=== PATIENT | female | born 1935 | race Caucasian/White ===

== ENCOUNTER 2016-11-15 09:40 | Emergency (ER) | payer MEDICARE ==
[~2016-11-15 09:40] MED LIST: ASPI1TAB7 PO; ATOR20TA PO; HYDR-2768 PO; LATA0.00 OP; METH2.5 PO; PRED10 PO
[2016-11-15 09:47] VITALS: BP 188/87; PULSE 111; RESP 20; TEMP 98.4; O2SAT 98
--- NOTE | 2016-11-15 10:05 | PD ---
HPI Chief Complaint: Complaint Time Seen by Provider: 09:55 Travel History International Travel<30 days: No Contact w/Intl Traveler<30days: No Traveled to known affect area: No History of Present Illness HPI The patient is a 81-year-old female who presents to the emergency department for hematuria and dysuria. The patient states her symptoms started approximately 4 AM with dysuria. The patient then noticed that she had burning with urination and some blood in the urine. Patient now complains of blood clots in her urine with mild pain with urination. She denies any nausea, vomiting, diarrhea, flank pain, or history of nephrolithiasis. She does complain of suprapubic discomfort and pressure with urination. The patient denies any history of tobacco use or bladder cancer. The patient's symptoms are moderate, there are no alleviating or exacerbating factors. She denies any associated fever, chills, or sweats. PFSH Past Medical History Autoimmune Disease: Yes (TEMPORAL ARTERITIS) Heart Rhythm Problems: No Cancer: No Cardiac Catheterization: No Cardiovascular Problems: No (INFLAMATION OF BILATERAL TEMPORAL ARTERIES) High Cholesterol: Yes Congestive Heart Failure: No Diabetes: No Diminished Hearing: No Endocrine: No Genitourinary: No Hepatitis: No Hiatal Hernia: No Immune Disorder: No Musculoskeletal: No Neurologic: No Psychiatric: No Reproductive: Yes (hx of hysterectomy) Respiratory: No Thyroid Disease: No Menopausal: Yes Past Surgical History AICD: No Coronary Artery Bypass Graft: No Eye Surgery: Yes (CATARACT EXTRACTION 2004 ) Gynecologic Surgery: Yes (hysterectomy) Hysterectomy: Yes (1984) Joint Replacement: No Pacemaker: No Social History Alcohol Use: No Tobacco Use: No Substance Use: No Allergies-Medications (Allergen,Severity, Reaction): Coded Allergies: Penicillin (Verified Allergy, Severe, LIPS AND TONGUE SWOLLEN, 11/15/16) Reported Meds & Prescriptions Reported Meds & Active Scripts Active Reported [Lantanprost] 1 Drop EACH EYE HS Aspir-Low (Aspirin) 81 Mg Tabdr 1 Tab PO DAILY Pantoprazole (Pantoprazole Sodium) 20 Mg Tab 20 Mg PO DAILY Prednisone 1 Mg Tab 4 Mg PO DAILY Leflunomide 20 Mg Tab 20 Mg PO DAILY Losartan-Hydrochlorothiazide 50-12.5 Mg Tab 1 Tab PO DAILY Atorvastatin (Atorvastatin Calcium) 20 Mg Tab 20 Mg PO HS Review of Systems Except as stated in HPI: all other systems reviewed are Neg General / Constitutional: No: Fever Gastrointestinal: No: Nausea, Vomiting, Diarrhea, Abdominal Pain Genitourinary: Positive: Dysuria, Hematuria, Pelvic Pain, No: Flank Pain, Vaginal Bleeding Physical Exam Narrative GENERAL: Awake, alert, pleasant 81-year-old female who appears her stated age and is in no acute respiratory distress. SKIN: Warm and dry. HEAD: Atraumatic. Normocephalic. EYES: No injection or drainage. ENT: No nasal bleeding or discharge. Mucous membranes pink and moist. NECK: Trachea midline. No JVD. GASTROINTESTINAL: Abdomen soft, non-tender, nondistended. No rebound tenderness. No suprapubic tenderness. Back: No CVA tenderness. MUSCULOSKELETAL: No obvious deformities. No clubbing. No cyanosis. No edema. NEUROLOGICAL: Awake and alert. No obvious cranial nerve deficits. Motor grossly within normal limits. Normal speech. PSYCHIATRIC: Appropriate mood and affect; insight and judgment normal. Data Data Last Documented VS Vital Signs Date Time Temp Pulse Resp B/P Pulse Ox O2 Delivery O2 Flow Rate FiO2 11/15/16 09:47 98.4 111 20 188/87 98 Orders Urinalysis - C+S If Indicated (11/15/16 10:00) Ct Abd/Pel W/O Iv Contrast (11/15/16 ) Urine Culture (11/15/16 10:10) Labs Laboratory Tests Test 11/15/16 10:10 Urine Collection Type CLEAN CATCH Urine Color RED Urine Turbidity CLOUDY Urine pH 8.0 Urine Specific [place] 1.010 Urine Protein 300 OR GREATER mg/dL Urine Glucose (UA) 100 mg/dL Urine Ketones TRACE mg/dL Urine Occult Blood LARGE Urine Nitrite POS Urine Bilirubin NEG Urine Leukocyte Esterase MOD Urine RBC INNUM /hpf Urine WBC 20-24 /hpf Urine WBC Clumps MANY Microscopic Urinalysis Comment CULTURE INDICATED MDM Medical Decision Making Medical Screen Exam Complete: Yes Emergency Medical Condition: Yes Medical Record Reviewed: Yes Interpretation(s) Laboratory Tests Test 11/15/16 10:10 Urine Collection Type CLEAN CATCH Urine Color RED Urine Turbidity CLOUDY Urine pH 8.0 Urine Specific [place] 1.010 Urine Protein 300 OR GREATER mg/dL Urine Glucose (UA) 100 mg/dL Urine Ketones TRACE mg/dL Urine Occult Blood LARGE Urine Nitrite POS Urine Bilirubin NEG Urine Leukocyte Esterase MOD Urine RBC INNUM /hpf Urine WBC 20-24 /hpf Urine WBC Clumps MANY Microscopic Urinalysis Comment CULTURE INDICATED CT the abdomen and pelvis reveals small fat containing umbilical hernia. Slight prominence the right infra-renal collecting system without evidence of radiopaque calculi or discrete mass. Trace free fluid in the pelvis. Differential Diagnosis Differential diagnosis includes hemorrhagic cystitis, UTI, nephrolithiasis, bladder cancer cystitis, cystitis. Narrative Course IV was established, labs were drawn and sent, and the patient was placed on cardiac telemetry monitoring and continuous pulse oximetry monitoring. UA was sent to lab. CT of the abdomen and pelvis without IV contrast was ordered. UA reveals large amount of blood and a few WBCs. CT the abdomen and pelvis reveals slight prominence of the right intrarenal collecting system without evidence of radiopaque calculi or discrete mass. Trace free fluid in the pelvis. The patient urinated once again in the emergency department, states her urine was clear and to a slightly pink coloration and there was no pain. Patient may have hemorrhagic cystitis versus kidney stone versus bladder mass. The patient is advised to follow-up with her primary physician, Dr. Shirley, and if symptoms persist, follow-up with urology for outpatient cystoscopy. The patient will be provided a copy of her CT results and lab results at discharge. Diagnosis Primary Impression: Hematuria Additional Impression: Hemorrhagic cystitis Patient Instructions: General Instructions Additional Instructions: Please provide the patient a copy of her CT results and UA results at discharge. Cipro and Pyridium as directed. Follow-up with Dr. Shirley, if symptoms persist, you may benefit from outpatient urology consultation and cystoscopy. Med/Other Pt SpecificInfo: Prescription(s) given Scripts Phenazopyridine (Pyridium)200 Mg Oge450 Mg PO Q8H PRN (DYSURIA) 2 Days Ref 0 Prov:Fabien Peguero MD 11/15/16 Ciprofloxacin (Cipro)500 Mg [id number] Mg PO BID 7 Days Ref 0 Prov:Fabien Peguero MD 11/15/16 Disposition: 01 DISCHARGE HOME Condition: Stable Fabien Peguero MD Nov 15, 2016 10:05
[2016-11-15] MEDS ORDERED: LEFL1TAB3 PO (10:08)
[2016-11-15] MEDS ORDERED: ASPI81TA19 PO (10:08)
[2016-11-15] MEDS ORDERED: [UNRECOGNIZED DRUG - OTHER] EACH EYE (10:08)
[2016-11-15] MEDS ORDERED: PRED1 PO (10:08)
[2016-11-15] MEDS ORDERED: ATOR20TA15 PO (10:08)
[2016-11-15] MEDS ORDERED: PANT20TA2 PO (10:08)
[2016-11-15] MEDS ORDERED: LOSA50TA2 PO (10:08)
[2016-11-15 10:16] LABS: BLOOD, URINE LARGE (NEG); GLUCOSE,URINE 100 mg/dL (NEG); KETONE, URINE TRACE mg/dL (NEG)
[2016-11-15 10:19] LABS: NITRITE,URINE POS (NEG)
[2016-11-15 10:20] LABS: METHOD OF COLLECTION CLEAN CATCH; URINE COLOR RED (YELLW/STRAW)
[2016-11-15 10:21] LABS: COMMENT (UR) CULTURE INDICATED; CULTURE IF INDICATED CULTURE INDICATED; RBC, URINE INNUM /hpf (0-3)
--- NOTE | 2016-11-15 11:25 | RADHPO ---
EXAM DATE/TIME: 11/15/2016 11:05 [facility] COMPARISON: No previous studies available for comparison. INDICATIONS : Hematuria and dysuria, with suprapubic pain since this morning. ORAL CONTRAST: No oral contrast ingested. RADIATION DOSE: 5.28 CTDIvol (mGy) MEDICAL HISTORY : Hypertension. SURGICAL HISTORY : Hysterectomy. ENCOUNTER: Initial ACUITY: 1 day PAIN SCALE: 1/10 LOCATION: lower quadrant TECHNIQUE: Volumetric scanning of the abdomen and pelvis was performed. Using automated exposure control and ad justment of the mA and/or kV according to patient size, radiation dose was kept as low as reasonably achievable to obtain optimal diagnostic quality images. FINDINGS: Liver, gallbladder, spleen, pancreas, right adrenal gland and left kidney are unremarkable. There is mild enlargement of the medial limb of the left adrenal gland suspect for an adenoma. There is minima l prominence of the right intrarenal collecting system and renal pelvis. No radiopaque renal or urete ral tract by are seen. Trace free fluid in the right hemipelvis adjacent to the posterior margin of t he urinary bladder. The patient is status post hysterectomy. There is no evidence of bowel obstructio n. Small fat containing umbilical hernia. Bases are clear. Osseous structures demonstrate degenerativ e changes of the spine. Atherosclerosis of the aorta and iliac vessels. CONCLUSION: 1. Small fat containing umbilical hernia. 2. Slight prominence of the right intrarenal collecting system without evidence of radiopaque calculi or discrete mass. 3. Trace free fluid in the pelvis. Joaquin Dumont MD on November 15, 2016 at 11:19 Board Certified Radiologist. This report was verified electronically.
[2016-11-15] MEDS ORDERED: CIPR-9 PO (11:42)
[2016-11-15] MEDS ORDERED: PYRI200T4 PO (11:42)
[2016-11-15 11:52] VITALS: BP 166/83
[2016-11-16] MEDS ORDERED: LATA0.002 EACH EYE (10:23)
[2017-02-07] MEDS ORDERED: DOXY100C PO (08:31)
== END 2016-11-15 11:55 | disposition home or self-care (01) ==
LOC: PHED 09:40
DX: N30.91 Cystitis, unspecified with hematuria (principal); B96.4 Proteus (mirabilis) (morganii) as the cause of diseases classified elsewhere
CPT/HCPCS: 74176; 81001; 87077; 87086; 87186

== ENCOUNTER → 2017-02-07 | Outpatient (CLI) | payer MEDICARE ==
[~2017-02-07] MED LIST changes: -ASPI1TAB7 PO; +ASPI81TA19 PO; -ATOR20TA PO; +ATOR20TA15 PO; +CIPR-9 PO; +DOXY100C PO; -HYDR-2768 PO; -LATA0.00 OP; +LATA0.002 EACH EYE; +LEFL1TAB3 PO; +LOSA50TA2 PO; -METH2.5 PO; +PANT20TA2 PO; +PRED1 PO; -PRED10 PO; +PYRI200T4 PO
[2017-02-07 08:32] LABS: AUTOMATED NEUTROPHIL # 2.9 TH/MM3 (1.8-7.7); BASOPHIL # 0.1 TH/MM3 (0-0.2); BASOPHIL % 1.1 % (0.0-2.0); HEMATOCRIT 37.3 % (35.0-46.0); HEMO FLAGS DIFF FINAL; LYMPH % 24.7 % (9.0-44.0); LYMPHOCYTE # 1.2 TH/MM3 (1.0-4.8); MEAN CELL VOLUME 87.3 FL (80.0-100.0); MEAN CORPUSCULAR HEMOGLOBIN 29.5 PG (27.0-34.0); MEAN CORPUSCULAR HGB CONC 33.7 % (32.0-36.0); MONO % 15.6 % (0.0-8.0); NEUT % 57.6 % (16.0-70.0); PLATELET COUNT 234 TH/MM3 (150-450); RED BLOOD COUNT 4.27 MIL/MM3 (4.00-5.30); RED CELL DISTRIBUTION WIDTH 15.1 % (11.6-17.2)
[2017-02-07 08:42] LABS: APTT (PATIENT) 26.5 SEC (24.3-30.1); INTERNATIONAL NORMALIZED RATIO 1.1 RATIO
[2017-02-07 08:51] LABS: ALT (GPT) 26 U/L (10-53); ANION GAP 12 MEQ/L (5-15); AST (GOT) 26 U/L (15-37); BICARBONATE 25.6 MEQ/L (21.0-32.0); BLOOD UREA NITROGEN 14 MG/DL (7-18); CHLORIDE 96 MEQ/L (98-107); GLOMERULAR FILTRATION RATE 79 ML/MIN (>89); GLUCOSE,FASTING 93 MG/DL (74-99); SODIUM (NA) 134 MEQ/L (136-145)
[2017-02-07 08:54] LABS: ALKALINE PHOSPHATASE 58 U/L (45-117); TOTAL BILIRUBIN ADULT 0.7 MG/DL (0.2-1.0)
[2017-02-07 10:16] LABS: BLOOD, URINE NEG (NEG); GLUCOSE,URINE NEG (NEG); HYALINE CAST, URINE 1 /lpf (RARE); KETONE, URINE NEG (NEG); NITRITE,URINE NEG (NEG); PH, URINE 6.5 (5.0-8.5); URINE COLOR YELLOW (YELLW/STRAW)
[2017-02-07 10:17] LABS: COMMENT (UR) CATH-CULT NOT IND; CULTURE IF INDICATED CATH CULTURE NOT IND
== END ==
LOC: CPRE 07:39
PROVIDERS: ATTEND Surgery
DX: Z01.810 Encounter for preprocedural cardiovascular examination (principal); Z01.812 Encounter for preprocedural laboratory examination
CPT/HCPCS: 36415; 80053; 81001; 85025; 85610; 85730

== ENCOUNTER 2017-05-29 08:05 | Emergency (ER) | payer MEDICARE ==
[~2017-05-29] VITALS: Ht 147.3 cm; Wt 44.0 kg
[~2017-05-29 08:05] MED LIST changes: -CIPR-9 PO; -PYRI200T4 PO
[2017-05-29 08:08] VITALS: BP 139/84; PULSE 142; RESP 18; TEMP 98.1; O2SAT 94
[2017-05-29] MEDS ORDERED: RIFA300C2 PO (08:20)
[2017-05-29] MEDS ORDERED: DAPS5TAB PO (08:22)
--- NOTE | 2017-05-29 08:46 | PD ---
HPI Chief Complaint: Skin Problem Time Seen by Provider: 08:24 Travel History International Travel<30 days: No Contact w/Intl Traveler<30days: No Traveled to known affect area: No History of Present Illness HPI This 82-year-old female presents with complaint of possible infection in her left leg. 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 She is being followed by Dr. armando castaneda for the leprosy. She is on dapsone and rifampin. She says the last couple of days he's had some drainage from the left leg and she is concerned that that may be a bacterial superinfection. She does say that she's been short of breath recently. For the last 2 weeks she's had increasing shortness of breath. She says she gets short of breath doing light housework. She has not had fever or chills. He has never smoked. She has not had chest pain. She was evaluated by a order manager because of a fast heart rate. He was in the chest pain center here in November 2015. Her workup then was negative. Her heart rate was not rapid. She says that recently it has been rapid and she has been aware of the fast heartbeat. She was seen by the order manager and had an echocardiogram and Holter monitor. She does say that Dr. Armstrong had lowered her dose of dapsone for a brief time because of anemia PFSH Past Medical History Autoimmune Disease: Yes (TEMPORAL ARTERITIS) Heart Rhythm Problems: No Cancer: No Cardiac Catheterization: No Cardiovascular Problems: Yes (INFLAMATION OF BILATERAL TEMPORAL ARTERIES) High Cholesterol: Yes Congestive Heart Failure: No Diabetes: No Diminished Hearing: No Endocrine: No GERD: Yes Glaucoma: Yes Genitourinary: No Hepatitis: No Hiatal Hernia: No Hypertension: Yes Immune Disorder: No Medical other: Yes (OSTEOPEROSIS) Musculoskeletal: No Neurologic: No Psychiatric: No Reproductive: Yes (hx of hysterectomy) Respiratory: No Thyroid Disease: No ?: Not Menopausal: Yes Past Surgical History AICD: No Coronary Artery Bypass Graft: No Eye Surgery: Yes (CATARACT EXTRACTION 2004 ) Gynecologic Surgery: Yes (hysterectomy) Hysterectomy: Yes (1984) Joint Replacement: No Pacemaker: No Other Surgery: Yes Social History Alcohol Use: Yes (RARE) Tobacco Use: No Substance Use: No Allergies-Medications (Allergen,Severity, Reaction): Coded Allergies: Penicillin (Verified Allergy, Severe, LIPS AND TONGUE SWOLLEN, 05/29/17) Sulfa (Verified Adverse Reaction, Unknown, NAUSEA, 05/29/17) Reported Meds & Prescriptions Reported Meds & Active Scripts Active Reported Dapsone 25 Mg Tab 50 Mg PO DAILY Rifampin 300 Mg Cap 600 Mg PO DAILY Latanoprost Opth Drops (Latanoprost) 0.005% Drops 1 Drop EACH EYE HS Refrigerate until opened. Aspir-Low (Aspirin) 81 Mg Tabdr 1 Tab PO DAILY Pantoprazole (Pantoprazole Sodium) 20 Mg Tab 20 Mg PO DAILY Leflunomide 20 Mg Tab 20 Mg PO DAILY Losartan-Hydrochlorothiazide 50-12.5 Mg Tab 1 Tab PO DAILY Atorvastatin (Atorvastatin Calcium) 20 Mg Tab 20 Mg PO HS Review of Systems General / Constitutional: No: Fever, Chills Eyes: No: Diploplia, Blurred Vision HENT: No: Headaches, Vertigo Cardiovascular: Positive: Palpitations, Tachycardia, No: Chest Pain or Discomfort Respiratory: Positive: Shortness of Breath Gastrointestinal: No: Nausea, Vomiting, Diarrhea Genitourinary: No: Urgency, Frequency Musculoskeletal: No: Myalgias, Arthralgias Skin: Positive Rash Neurologic: Positive: Weakness, No: Syncope, Focal Abnormalities Endocrine: No: Heat Intolerance, Cold Intolerance Hematologic/Lymphatic: No: Easy Bruising Physical Exam Narrative GENERAL: Thin female. Heart rate is recorded at 142 SKIN: Focused skin assessment warm/dry. There is a rash on the right lower leg which is well marginated. The rash is somewhat erythematous. There are areas of scabbing. There is no drainage at this time though she says it was draining earlier HEAD: Atraumatic. Normocephalic. EYES: Pupils equal and round. No scleral icterus. No injection or drainage. ENT: No nasal bleeding or discharge. Mucous membranes pink and moist. NECK: Trachea midline. No JVD. CARDIOVASCULAR: Rapid Regular rate and rhythm. No murmur appreciated. RESPIRATORY: No accessory muscle use. Clear to auscultation. Breath sounds equal bilaterally. GASTROINTESTINAL: Abdomen soft, non-tender, nondistended. Hepatic and splenic margins not palpable. MUSCULOSKELETAL: No obvious deformities. No clubbing. No cyanosis. No edema. NEUROLOGICAL: Awake and alert. No obvious cranial nerve deficits. Motor grossly within normal limits. Normal speech. PSYCHIATRIC: Appropriate mood and affect; insight and judgment normal. Data Data Last Documented VS Vital Signs Date Time Temp Pulse Resp B/P Pulse Ox O2 Delivery O2 Flow Rate FiO2 05/29/17 09:59 126 16 151/82 97 Room Air 05/29/17 08:08 98.1 Orders Electrocardiogram (05/29/17 08:24) Complete Blood Count With Diff (05/29/17 08:35) Comprehensive Metabolic Panel (05/29/17 08:35) Troponin I (05/29/17 08:35) B-Type Natriuretic Peptide (05/29/17 08:35) Urinalysis - C+S If Indicated (05/29/17 08:35) Magnesium (Mg) (05/29/17 08:35) Thyroid Stimulating Hormone (05/29/17 08:35) Chest, Single Ap (05/29/17 08:35) D-Dimer (05/29/17 08:35) Urine Culture (05/29/17 08:40) Ct Pulmonary Angiogram (05/29/17 09:21) Iohexol 350 Inj (Omnipaque 350 Inj) (05/29/17 09:49) Sodium Chlor 0.9% 1000 Ml Inj (Ns 1000 M (05/29/17 10:15) Cephalexin (Keflex) (05/29/17 10:15) Troponin I (05/29/17 12:45) Labs Laboratory Tests Test 05/29/17 05/29/17 05/29/17 08:40 08:45 12:30 Urine Collection Type CLEAN CATCH Urine Color YELLOW Urine Turbidity CLEAR Urine pH 7.0 Urine Specific [place] 1.013 Urine Protein NEG mg/dL Urine Glucose (UA) NEG mg/dL Urine Ketones NEG mg/dL Urine Occult Blood TRACE Urine Nitrite NEG Urine Bilirubin NEG Urine Leukocyte Esterase TRACE Urine RBC 0-3 /hpf Urine WBC 9-14 /hpf Microscopic Urinalysis Comment CULTURE INDICATED White Blood Count 5.1 TH/MM3 Red Blood Count 3.28 MIL/MM3 Hemoglobin 9.5 GM/DL Hematocrit 29.7 % Mean Corpuscular Volume 90.6 FL Mean Corpuscular Hemoglobin 29.0 PG Mean Corpuscular Hemoglobin 32.1 % Concent Red Cell Distribution Width 16.1 % Platelet Count 295 TH/MM3 Mean Platelet Volume 7.7 FL Neutrophils (%) (Auto) 65.9 % Lymphocytes (%) (Auto) 14.1 % Monocytes (%) (Auto) 18.2 % Eosinophils (%) (Auto) 1.0 % Basophils (%) (Auto) 0.8 % Neutrophils # (Auto) 3.4 TH/MM3 Lymphocytes # (Auto) 0.7 TH/MM3 Monocytes # (Auto) 0.9 TH/MM3 Eosinophils # (Auto) 0.1 TH/MM3 Basophils # (Auto) 0.0 TH/MM3 CBC Comment DIFF FINAL Differential Comment D-Dimer Quantitative (PE/DVT) 1.10 MG/L FEU Sodium Level 135 MEQ/L Potassium Level 4.0 MEQ/L Chloride Level 101 MEQ/L Carbon Dioxide Level 22.0 MEQ/L Anion Gap 12 MEQ/L Blood Urea Nitrogen 21 MG/DL Creatinine 0.86 MG/DL Estimat Glomerular Filtration 63 ML/MIN Rate Random Glucose 129 MG/DL Calcium Level 9.1 MG/DL Magnesium Level 1.7 MG/DL Total Bilirubin 1.7 MG/DL Aspartate Amino Transf 30 U/L (AST/SGOT) Alanine Aminotransferase 21 U/L (ALT/SGPT) Alkaline Phosphatase 91 U/L Troponin I 0.16 NG/ML 0.17 NG/ML B-Type Natriuretic Peptide 41 PG/ML Total Protein 6.7 GM/DL Albumin 3.3 GM/DL Thyroid Stimulating Hormone 4.190 uIU/ML 3rd Gen [facility] Medical Decision Making Medical Screen Exam Complete: Yes Emergency Medical Condition: Yes Medical Record Reviewed: Yes Differential Diagnosis Patient appears to have some possible bacterial superinfection of her rash. Of concern was her heart rate of 142. An EKG was done which appears to show sinus tachycardia at a rate of 1 [address] There are no [address]-T wave changes. Blood work was done. Her hemoglobin is 9.5. TSH is slightly elevated at 4.1. Her troponin is 0.16. she does have 9-14 white cells in her urine. A d-dimer was done which was elevated so a CTA has been done the CTA has been read as negative for pulmonary embolus. The patient has not been having any chest pain and had a normal stress test Nov 2015. I discussed the case with Dr. Saunders and Dr. Hunter. She has been given some IV fluids and her heart rate came down a little bit not to normal. It a 4 hour troponin was done and is essentially the same. It is 0.17 with the first one was 0.16 patient wishes to be released and will be released. Dr. Saunders has arranged for outpatient follow-up Narrative Course Patient will be given Keflex for possible bacterial superinfection of her rash. Workup is negative for PE. Her troponin was slightly elevated but repeat level is essentially the same. She is to follow-up with Dr. Shirley Diagnosis Primary Impression: Cellulitis Qualified Code: L03.115 - Cellulitis of right lower extremity Additional Impression: Urinary tract infection Qualified Code: N30.00 - Acute cystitis without hematuria Disposition: 01 DISCHARGE HOME Condition: Stable Toro Barry MD May 29, 2017 08:46
[2017-05-29 09:00] VITALS: BP 119/70; PULSE 133; RESP 20; O2SAT 100
[2017-05-29 09:00] LABS: AUTOMATED NEUTROPHIL # 3.4 TH/MM3 (1.8-7.7); BASOPHIL % 0.8 % (0.0-2.0); EOSINOPHIL # 0.1 TH/MM3 (0-0.4); HEMATOCRIT 29.7 % (35.0-46.0); HEMO FLAGS DIFF FINAL; LYMPH % 14.1 % (9.0-44.0); LYMPHOCYTE # 0.7 TH/MM3 (1.0-4.8); MEAN CELL VOLUME 90.6 FL (80.0-100.0); MEAN CORPUSCULAR HGB CONC 32.1 % (32.0-36.0); MONO % 18.2 % (0.0-8.0); NEUT % 65.9 % (16.0-70.0); PLATELET COUNT 295 TH/MM3 (150-450); RED BLOOD COUNT 3.28 MIL/MM3 (4.00-5.30); RED CELL DISTRIBUTION WIDTH 16.1 % (11.6-17.2); WHITE BLOOD COUNT 5.1 TH/MM3 (4.0-11.0)
[2017-05-29 09:03] LABS: CHLORIDE 101 MEQ/L (98-107); SODIUM (NA) 135 MEQ/L (136-145)
[2017-05-29 09:05] LABS: BLOOD, URINE TRACE (NEG); GLUCOSE,URINE NEG (NEG); KETONE, URINE NEG (NEG); NITRITE,URINE NEG (NEG)
[2017-05-29 09:07] LABS: ANION GAP 12 MEQ/L (5-15); BLOOD UREA NITROGEN 21 MG/DL (7-18); MAGNESIUM 1.7 MG/DL (1.5-2.5)
[2017-05-29 09:10] LABS: ALT (GPT) 21 U/L (10-53); AST (GOT) 30 U/L (15-37); GLOMERULAR FILTRATION RATE 63 ML/MIN (>89)
[2017-05-29 09:11] LABS: TOTAL BILIRUBIN ADULT 1.7 MG/DL (0.2-1.0)
[2017-05-29 09:12] LABS: METHOD OF COLLECTION CLEAN CATCH; URINE COLOR YELLOW (YELLW/STRAW)
[2017-05-29 09:13] LABS: ALKALINE PHOSPHATASE 91 U/L (45-117)
--- NOTE | 2017-05-29 09:14 | RADRPT ---
EXAM DATE/TIME: 05/29/2017 08:59 [facility] COMPARISON: CHEST SINGLE AP, November 19, 2015, 15:05. INDICATIONS : Short of breath MEDICAL HISTORY : None. SURGICAL HISTORY : None. ENCOUNTER: Initial ACUITY: 1 month PAIN SCORE: 0/10 LOCATION: Bilateral chest FINDINGS: A single view of the chest demonstrates the lungs to be hyperaerated without evidence of mass, infilt rate or effusion. The cardiomediastinal contours are unremarkable. Osseous structures are intact. CONCLUSION: COPD No evidence of acute process. Kirby Mix MD on May 29, 2017 at 9:12 Board Certified Radiologist. This report was verified electronically.
[2017-05-29 09:15] LABS: COMMENT (UR) CULTURE INDICATED; CULTURE IF INDICATED CULTURE INDICATED; RBC, URINE 0-3 /hpf (0-3)
[2017-05-29] MEDS ORDERED: IOHEXOL 350 MG/ML 10 ML VIAL (for RAD DIAG) IV ONE (09:49)
--- NOTE | 2017-05-29 09:57 | RADRPT ---
EXAM DATE/TIME: 05/29/2017 09:33 [facility] COMPARISON: No previous studies available for comparison. INDICATIONS : Short of breath. Evaluate for embolism. IV CONTRAST: 65 cc Omnipaque 350 (iohexol) IV RADIATION DOSE: 6.03 CTDIvol (mGy) MEDICAL HISTORY : Hypertension. SURGICAL HISTORY : Hysterectomy. ENCOUNTER: Initial ACUITY: 2 weeks PAIN SCALE: 0/10 LOCATION: chest TECHNIQUE: Volumetric scanning of the chest was performed using a pulmonary embolism protocol MIP images were re constructed. Using automated exposure control and adjustment of the mA and/or kV according to patien t size, radiation dose was kept as low as reasonably achievable to obtain optimal diagnostic quality images. DICOM format image data is available electronically for review and comparison. Follow-up recommendations for incidentally detected pulmonary nodules are based at a minimum on nodul e size and patient risk factors according to Fleischner Society Guidelines. FINDINGS: PULMONARY ARTERIES: No filling defects are seen in the pulmonary arteries through the segmental level. LUNGS: There is no consolidation or pneumothorax . No concerning pulmonary nodule is visualized. PLEURAE: There is no pleural thickening or pleural effusion. MEDIASTINUM: There is good visualization of the great vessels of the middle mediastinum. No evidence of mediastin al or hilar adenopathy/mass. MUSCULOSKELETAL: Within normal limits for patient age. MISCELLANEOUS: The visualized upper abdominal organs demonstrate no acute abnormality. CONCLUSION: No acute disease. No evidence of acute pulmonary emboli. Kirby Mix MD on May 29, 2017 at 9:54 Board Certified Radiologist. This report was verified electronically.
[2017-05-29 09:59] VITALS: BP 151/82; PULSE 126; RESP 16; O2SAT 97
[2017-05-29] MEDS ORDERED: CEPHALEXIN MONOHYDRATE 500 MG CAP PO ONE (10:15)
[2017-05-29] MEDS ORDERED: SODIUM CHLOR 0.9% 1000 ML INJ 1,000 ML IV ONE (10:15)
[2017-05-29] MEDS ORDERED: CEPH-460 PO (13:13)
--- NOTE | 2017-05-29 14:51 | HHI.PR ---
Subjective Remarks This 82-year-old female presents with complaint of possible infection in her left leg. 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 She is being followed by ID for the leprosy. She is on dapsone and rifampin. She says the last couple of days he's had some drainage from the left leg and she is concerned that that may be a bacterial superinfection. She does say that she's been short of breath recently. For the last 2 weeks she's had increasing shortness of breath. She says she gets short of breath doing light housework. She has not had fever or chills. He has never smoked. She has not had chest pain. She was evaluated by a friction saw operator because of a fast heart rate. He was in the chest pain center here in November 2015. Her workup then was negative. Her heart rate was not rapid. She says that recently it has been rapid and she has been aware of the fast heartbeat. She was seen by the friction saw operator and had an echocardiogram and Holter monitor. She does say that Dr. Armstrong had lowered her dose of dapsone for a brief time because of anemia. I evaluated patient in er . Her heart rate initially was high sinus tach then came down to about 120 agian sinus troponin was a little high .15 repaet after fluid was about same and cardiology felt can be discharged with follow up to cardiology. Patient does have wound which according to patient is worse no evidence of drainage and leg does not show any increase in redness will have wound clinic evaluation . Objective Vitals GENERAL: SKIN: Warm and dry. HEAD: Atraumatic. Normocephalic. EYES: Pupils equal and round. No scleral icterus. No injection or drainage. ENT: No nasal bleeding or discharge. Mucous membranes pink and moist. NECK: Trachea midline. No JVD. CARDIOVASCULAR: Regular rate and rhythm. RESPIRATORY: No accessory muscle use. Clear to auscultation. Breath sounds equal bilaterally. GASTROINTESTINAL: Abdomen soft, non-tender, nondistended. Hepatic and splenic margins not palpable. MUSCULOSKELETAL: Extremities without clubbing, cyanosis, or edema. No obvious deformities. NEUROLOGICAL: Awake and alert. No obvious cranial nerve deficits. Motor grossly within normal limits. Five out of 5 muscle strength in the arms and legs. Normal speech. PSYCHIATRIC: Appropriate mood and affect; insight and judgment normal. EXT-wound lower extremity not drainage Vital Signs Date Time Temp Pulse Resp B/P Pulse Ox O2 Delivery O2 Flow Rate FiO2 05/29/17 09:59 126 16 151/82 97 Room Air 05/29/17 09:00 133 20 119/70 100 Room Air 05/29/17 08:12 137 05/29/17 08:08 98.1 142 18 139/84 94 Result Diagram: 05/29/1745 05/29/1745 A/P Problem List: (1) Wound of lower extremity Status: Chronic Plan: continue meds will refer to wound clinic ,er started on keflex (2) Tachycardia Status: Chronic Plan: will discuss with PCP patient has had work up already Assessment and Plan f/u pcp Jorge De La Garza MD May 29, 2017 14:51
--- NOTE | 2017-05-30 19:59 | EKG ---
Date Performed: 05/29/2017 Time Performed: 08:30:55 PTAGE: 82 years EKG: ATRIAL FLUTTER/TACHYCARDIA WITH RAPID VENTRICULAR RESPONSE POSSIBLE RIGHT VENTRICULAR CONDU CTION DELAY ABNORMAL RHYTHM ECG PREVIOUS TRACING : 11/19/2015 21.02 Since previous tracing, no significant change noted DOCTOR: Coleen Collazo Interpretating Date/Time 05/30/2017 19:59:10
== END 2017-05-29 13:17 | disposition home or self-care (01) ==
LOC: PHED 08:05
DX: L03.115 Cellulitis of right lower limb (principal); N30.00 Acute cystitis without hematuria; R00.0 Tachycardia, unspecified; R06.02 Shortness of breath; I10 Essential (primary) hypertension; E78.00 Pure hypercholesterolemia, unspecified; Z79.899 Other long term (current) drug therapy; Z86.2 Personal history of diseases of the blood and blood-forming organs and certain disorders involving the immune mechanism; Z86.69 Personal history of other diseases of the nervous system and sense organs; Z86.79 Personal history of other diseases of the circulatory system; Z87.19 Personal history of other diseases of the digestive system; Z87.39 Personal history of other diseases of the musculoskeletal system and connective tissue
CPT/HCPCS: 71010; 71275; 80053; 81001; 83735; 83880; 84443; 84484; 85025; 85379; 87086; 93005; 96360; 99285; J7030; Q9967